=== PATIENT | female | born 1955 | race Caucasian/White ===

== ENCOUNTER 2017-09-07 12:57 | Emergency (ER) | payer OTHER ==
[~2017-09-07] VITALS: Ht 170.2 cm; Wt 79.1 kg
[2017-09-07 13:20] VITALS: Ht 170.2 cm; Wt 79.1 kg
[2017-09-07 15:53] VITALS: BP 131/68
== END 2017-09-07 15:53 | disposition home or self-care (01) ==
LOC: ED 12:57
DX: H43.11 Vitreous hemorrhage, right eye (principal); H33.21 Serous retinal detachment, right eye

== ENCOUNTER → 2019-08-11 | Outpatient (CLI) | payer OTHER | END | disposition home or self-care (01) | LOC: CT 16:03 | PROC: BN25ZZZ Computerized Tomography (CT Scan) of Facial Bones (ICD-10-PCS; principal; 2019-08-11) | PROC: BN26ZZZ Computerized Tomography (CT Scan) of Mandible (ICD-10-PCS; 2019-08-11) | DX: K00.0 Anodontia (principal) ==